=== PATIENT | female | born 1950 | race Caucasian/White ===

== ENCOUNTER 2017-07-04 07:16 | Outpatient (CLI) | payer OTHER ==
--- NOTE | 2017-07-04 09:06 | US ---
Exam: Bueno-scale and color Doppler ultrasonographic evaluation of the abdomen. Limited abdominal ul trasound Reason for exam: Abdominal pain. Comparison: None available. FINDINGS: The liver measures approximately 11.60 cm in length. There are two ill-defined mixed echogenicity regions within the hepatic parenchyma. The first is see n in the right hepatic lobe measuring approximately 6.04 x 5.10 x 7.25 cm. The second region measures approximately 3.74 x 3.47 x 4.22 cm with a heterogeneous appearing echotex ture. No perihepatic free fluid or intrahepatic ductal dilatation is seen. The gallbladder wall measures 0.22 cm which is within normal limits. In the distal portion of the ga llbladder wall. There is a region of focal thickening with a heterogeneous appearing internal echote xture measuring approximately 1.08 x 1.51 x 1.75 cm. The common bile duct measures 0.38 cm without evidence of intraluminal stone or polyp. The partially imaged pancreas is grossly unremarkable without ductal dilatation. The right kidney measures 10.0 x 4.5 x 3.53 cm with normal appearing echotexture, no hydronephrosis, and no nephrolithiasis. Impression: 1. Heterogeneous appearing hepatic echotexture and at least two locations measuring up to 7.25 cm. Follow-up evaluation is recommended . CT of the abdomen pelvis with and without intravenous contrast with delayed imaging is recommended for further characterization. 2. Unexpected finding: Nodular thickening of the distal gallbladder wall measuring up to 1.75 cm. Imaging findings can be seen with focal nodular thickening, neoplasia, and granulomatous disease. CT imaging with and without intravenous contrast is recommended and consider MRI for further characteriz ation. Report faxed at [id number] hours on 07/04/2017.
== END 2017-07-04 07:17 | disposition home or self-care (01) ==
LOC: RAD 07:16
PROVIDERS: ATTEND Family Medicine
DX: R10.10 Upper abdominal pain, unspecified (principal)

== ENCOUNTER 2017-07-05 09:10 | Outpatient (CLI) ==
--- NOTE | 2017-07-05 10:49 | CT ---
EXAM: CT abdomen with without contrast triple phase liver protocol HISTORY: Abnormal liver ultrasound yesterday. COMPARISON: Ultrasound yesterday TECHNIQUE: Serial axial images of the abdomen were performed from the lung bases to the upper pelvis . These were performed before and after the administration of 75 ml of Omnipaque 350 IV contrast. T hese were viewed in arterial, venous and delayed phases per triple phase protocol. These were viewed in multiple planes. FINDINGS: Lung bases are clear. The liver demonstrates no focal abnormality on the noncontrasted images. There is no discrete nodula rity of the liver. Arterial phase imaging demonstrates no enhancing lesion. Portal venous phase dem onstrates a normal portal vein with no focal hepatic abnormality. The delayed phase images are unrem arkable. The gallbladder demonstrates minimal focal soft tissue thickening of the gallbladder fundus as seen on axial image 30 measuring approximately 7 mm in thickness. The adrenal glands are normal. The kidneys are unremarkable. The spleen is normal. The pancreas is unremarkable. The stomach and small bowel is unremarkable. The colon as visualized are normal. Th ere is a fat-containing umbilical hernia. 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 IMPRESSION: 1. The liver is unremarkable with no focal hepatic lesion identified. 2. The focal gallbladder fundus, nodule may represent a focal area of adenomyomatosis, but neoplasm c annot be excluded. Further evaluation with MRI versus follow-up CT in 6 months is recommended to fur ther evaluate. 3. Fat containing umbilical hernia.
== END 2017-07-05 09:11 | disposition home or self-care (01) ==
LOC: RAD 09:10
PROVIDERS: ATTEND Family Medicine
DX: R93.2 Abnormal findings on diagnostic imaging of liver and biliary tract (principal)
CPT/HCPCS: 36415; 74170; 82565